=== PATIENT | female | born 1985 | race Caucasian/White ===

== ENCOUNTER 2017-11-22 13:33 | Outpatient (CLI) | payer BC ==
[2017-11-22 14:06] LABS: BASOPHILS # (AUTO) 0.1 K/uL (0.0-0.2); BASOPHILS % (AUTO) 0.6 % (0.0-2.0); EOSINOPHILS # (AUTO) 0.2 K/uL (0.0-0.4); EOSINOPHILS % (AUTO) 2.1 % (0.0-4.0); HEMATOCRIT 42.4 % (36-48); HEMOGLOBIN 13.9 g/dL (12.0-16.0); LYMPHOCYTES # (AUTO) 2.5 K/uL (1.0-5.5); LYMPHOCYTES % (AUTO) 22.4 % (20.5-51.5); MEAN CORPUSCULAR HEMOGLOBIN 26 pg (27-31); MEAN CORPUSCULAR HGB CONC 33 % (32-36); MEAN CORPUSCULAR VOLUME 80 fL (79.0-98.0); MONOCYTES # (AUTO) 0.6 K/uL (0.0-1.0); MONOCYTES % (AUTO) 5.3 % (1.7-9.3); NEUTROPHILS # (AUTO) 7.6 K/uL (1.8-7.7); NEUTROPHILS % (AUTO) 69.6 % (40.0-70.0); PLATELET COUNT (AUTO) 293 K/uL (130-430); RED BLOOD CELL COUNT(AUTO) 5.34 MIL/uL (4.2-6.2); RED CELL DISTRIBUTION WIDTH 13.1 % (9.0-15.0)
[2017-11-22 14:26] LABS: ALBUMIN 3.5 g/dL (3.4-4.8); CALCIUM 8.8 mg/dL (8.4-11.0); CREATININE 0.66 mg/dL (0.55-1.30); THYROID STIMULATING HORMONE 1.31 uIu/mL (0.34-4.82); TOTAL BILIRUBIN 0.4 mg/dL (0.0-1.0)
[2017-11-23 08:06] LABS: ESTRADIOL 39.8 pg/mL (.); LUETENIZING HORMONE 4.8 mIU/mL (.); PROGESTERONE <0.1 ng/mL (.); PROLACTIN 5.8 ng/mL (4.8-23.3)
== END 2017-11-22 19:32 | disposition home or self-care (01) ==
LOC: SLB 13:33
PROVIDERS: ATTEND Internal Medicine
DX: Z00.01 Encounter for general adult medical examination with abnormal findings (principal); E78.5 Hyperlipidemia, unspecified; R53.83 Other fatigue; N92.6 Irregular menstruation, unspecified
CPT/HCPCS: 36415; 80053; 80061; 82670; 83001; 83002; 84144; 84146; 84443-TC; 85025

== ENCOUNTER 2018-01-11 12:20 | Outpatient (CLI) | payer BC ==
[2018-01-11 14:02] LABS: FREE T4 (FREE THYROXINE) 0.7 ng/dL (0.6-1.6); THYROID STIMULATING HORMONE 1.8 uIu/mL (0.34-4.82)
[2018-01-12 12:07] LABS: DEHYDROEPIANDROSTERONE SULFATE 289.4 ug/dL (84.8-378.0); ESTRADIOL 36.9 pg/mL (.); FOLLICLE STIMULATION HORMONE 5.9 mIU/mL (.); LUETENIZING HORMONE 6.5 mIU/mL (.); PROLACTIN 5.4 ng/mL (4.8-23.3)
[2018-01-12 15:49] LABS: INSULIN 86.6 uIU/mL (2.6-24.9)
== END 2018-01-11 20:27 | disposition home or self-care (01) ==
LOC: SLB 12:20
PROVIDERS: ATTEND Specialist
DX: N91.1 Secondary amenorrhea (principal); E78.5 Hyperlipidemia, unspecified
CPT/HCPCS: 36415; 82627; 82670; 83001; 83002; 83525; 84146; 84403; 84439; 84443-TC; 84479

== ENCOUNTER 2018-03-01 09:56 | Outpatient (CLI) | payer OTHER | END 2018-03-01 17:44 | disposition home or self-care (01) | LOC: SUS 09:56 | PROVIDERS: ATTEND Specialist | DX: N91.1 Secondary amenorrhea (principal) | CPT/HCPCS: 76830-TC; 76857 ==

== ENCOUNTER 2019-08-18 15:09 | Outpatient (CLI) | payer OTHER | END 2019-08-18 20:23 | disposition home or self-care (01) | LOC: SLB 15:09 | PROVIDERS: ATTEND Specialist | DX: E66.01 Morbid (severe) obesity due to excess calories (principal); N91.4 Secondary oligomenorrhea | CPT/HCPCS: 36415; 82670; 83001; 83002; 84144 ==